=== PATIENT | male | born 1950 | race African-American/Black ===

== ENCOUNTER 2019-01-12 10:54 | Observation (INO) ==
[2019-01-12] MEDS ORDERED: ASPIRIN PO ONE (11:04)
--- NOTE | 2019-01-12 11:09 | EKG Report ---
Test Performed on : 01/12/2019 10:59:56 AM Test Reason : cp Blood Pressure : / mmHG Vent. Rate : 056 BPM Atrial Rate : 056 BPM P-R Int : 132 ms QRS Dur : 116 ms QT Int : 444 ms P-R-T Axes : 019 009 093 degrees QTc Int : 428 ms Sinus bradycardia. Left ventricular hypertrophy with QRS widening Inferior infarct , age undetermined T wave abnormality, consider lateral ischemia Abnormal ECG No previous ECGs available Unconfirmed Result
[2019-01-12 11:30] LABS: BASO# 0.04 X1000 (0.0-0.2); BASO% 0.8 % (0.0-0.8); EOS# 0.18 X1000 (0.0-0.7); EOS% 3.4 % (0.0-10.0); HEMATOCRIT 44.3 % (42.0-52.0); HEMOGLOBIN 13.8 g/dL (14.0-18.0); LYMPH# 1.54 X1000 (1.2-3.4); LYMPH% 28.9 % (20.5-51.1); MCH 24.8 PG (27-31); MCHC 31.2 g/dL (33-37); MCV 79.7 FL (81-99); MONO# 0.31 X1000 (0.11-0.59); MONO% 5.8 % (1.7-9.3); NEUT# 3.25 X1000 (1.4-6.5); NEUT% 61.1 % (42.2-75.2); PLT 190 X1000 (130-400); RBC 5.56 XMIL (4.7-6.1); RDW 16.8 % (11.5-14.5); WBC 5.32 X1000 (4.8-10.8)
--- NOTE | 2019-01-12 11:35 | Diag Imaging Result Doc PS360 ---
EXAM: CHEST-2 VIEWS HISTORY: cp TECHNIQUE: Two views COMPARISON: 01/17/2014 FINDINGS: The lungs are well expanded. The heart is mildly prominent there are sternal wires. The vessels are not distended. There are no infiltrates. No pleural effusions. IMPRESSION: Mild cardiomegaly. Electronically signed by Giuseppe Dawn 01/12/2019 11:33 AM
[2019-01-12 11:36] LABS: INR 0.92; PROTIME 13.1 Seconds (11.0-16.0)
[2019-01-12 11:37] LABS: PTT 31.8 Seconds (22.3-41.8)
[2019-01-12 11:59] LABS: AGAP 13; ALB/GLOB RATIO 1.1; ALBUMIN 4.5 g/dL (3.5-5.0); ALKALINE PHOSPHATASE 53 U/L (32-122); BUN 13 mg/dL (8-22); CALCIUM 9.6 mg/dL (8.8-10.2); CHLORIDE 102 mmol/L (98-107); COSMO 284; CREATININE 1.1 mg/dL (0.7-1.2); ESTIMATED GFR > 60; GLUCOSE 143 mg/dL (70-104); GOT 17 U/L (10-34); GPT 19 U/L (10-44); POTASSIUM 3.5 mmol/L (3.5-5.1); SODIUM 141 mmol/L (136-145); TCO2 26 mmol/L (25-35); TOTAL BILIRUBIN 0.41 mg/dL (0.20-1.00); TOTAL PROTEIN 8.6 g/dL (6.3-8.3)
[2019-01-12 12:01] LABS: CK PROFILE 250 U/L (24-204)
[2019-01-12 12:22] LABS: CK INDEX 0.9 (0.0-2.5); CK-MB 2.14 ng/mL (0.0-5.0)
[2019-01-12] MEDS ORDERED: NITROGLYCERIN TOP ONE (15:15)
[2019-01-12 15:16] LABS: HEMOGLOBIN A1C 8.2 % (4.8-6.0)
--- NOTE | 2019-01-12 16:26 | HISTORY AND PHYSICAL ---
PRIMARY CARE PHYSICIAN: Dr. Thong Galicia. CHIEF COMPLAINT: Chest pain. HISTORY OF PRESENT ILLNESS: Mr. Espinoza is a 68-year-old -[place] male with history of known coronary disease, status post CABG, hypertension, Type 2 diabetes who presents to our ER with acute onset of chest pain that began earlier this morning while in his truck on the way to go get some milk at the grocery store. He actually reports more of a left arm tingling that came at rest but did report a midsternal pain with continued radiation down to the left arm. He went into the store to get the milk and then hurried back home at which point he started to have nausea and vomiting and decided to call 911 and come to the ER. In the ER he has been noted to be bradycardic in the 50s, and his EKG does show nonspecific and diffuse ST and T abnormalities, but we do not have any previous EKGs for comparison. Initial set of troponins is negative, and he is hemodynamically stable. We will admit him for observation status. PAST MEDICAL HISTORY: 1. Known coronary artery disease, status post CABG. 2. Type 2 diabetes not requiring insulin. 3. BPH. 4. Hyperlipidemia. 5. Hypertension. PAST SURGICAL HISTORY: He has had a CABG. SOCIAL HISTORY: No tobacco, alcohol or drug use. He lives at home with his . REVIEW OF SYSTEMS: A 14-point review of systems was obtained and found to be negative with the exception of the HPI. ALLERGIES: No known drug allergies. HOME MEDICATIONS: Norvasc 2.5 mg p.o. daily; Lipitor 20 mg daily; Flomax 0.4 mg p.o. daily; glimepiride 4 mg daily. PHYSICAL EXAMINATION: VITAL SIGNS: Blood pressure 195/82; heart rate 46; respiratory rate 18; O2 sat 100% on room air; temperature 97.6. GENERAL: A slightly overweight 68-year-old -[place]ian male lying in the hospital bed in no acute distress. NEUROLOGICAL: He is oriented. Follows commands without focal deficits. HEENT: Head is atraumatic and normocephalic. His pupils are equal, round and reactive to light. Oral mucosa is moist. NECK: Trachea is midline. There is no JVD. CHEST: Clear to auscultation bilaterally. CARDIOVASCULAR: Regular rate and rhythm. S1 and S2 are noted. There is 1-2/6 murmur noted. GASTROINTESTINAL: Soft, nontender and nondistended. Bowel sounds positive. EXTREMITIES: Without edema. Pulses are 1+ bilaterally. DIAGNOSTIC DATA: Chest x-ray shows mild cardiomegaly and sternal wires, nothing acute. EKG sinus bradycardia, nonspecific ST and T abnormalities, Q waves noted in the inferior leads. WBC 5.32, hemoglobin 13.8, hematocrit 44.3, platelet count 190,000, INR 0.92, sodium 141, potassium 3.5, chloride 102, C02 26, anion gap 13, BUN 13, creatinine 1.1, glucose 143. LFTs negative. CK 250, troponin negative x 1 set. Protein 8.6. ASSESSMENT AND PLAN: 1. Chest pain: The patient does have atypical features combined with mild but concerning features for angina. He has been given aspirin. He is pain-free at this time but continues to be hypertensive. We will also give him some Nitro paste. We will consult cardiology, trend his enzymes and check an echocardiogram. 2. Hypertension: We will add some nitro paste, continue his Norvasc and up titrate as necessary. 3. Hyperproteinemia: Significance is unclear. Could be dehydration but will go ahead and check SPEP because there is a globulin gap. 4. Diabetes mellitus: Check hemoglobin A1C, add patterned sugars, hold oral antidiabetic. 5. BPH: Continue home meds. 6. DVT prophylaxis with Lovenox. Further recommendations to follow. Dictated by NANCY Sidhu for Sruthi Maciel MD cc: NANCY Sidhu MD
[2019-01-12 16:30] LABS: CK INDEX 0.9 (0.0-2.5); CK-MB 2.13 ng/mL (0.0-5.0)
[2019-01-12] MEDS: HUMULIN R SUBQ SCH ×2 (17:13→22:31)
[2019-01-12] MEDS: LOVENOX SUBQ SCH (17:43)
[2019-01-12] MEDS ORDERED: MORPHINE IV PRN (18:41)
[2019-01-12] MEDS ORDERED: NITROGLYCERIN SL PRN (18:42)
[2019-01-12] MEDS: APRESOLINE PO SCH (20:13)
[2019-01-12] MEDS: PRINIVIL PO SCH (20:13)
[2019-01-12] MEDS: APRESOLINE IV PRN (20:13)
[2019-01-12] MEDS ORDERED: COREG PO SCH (21:00)
[2019-01-12 23:18] LABS: CK INDEX 0.8 (0.0-2.5); CK-MB 1.98 ng/mL (0.0-5.0)
[2019-01-13] MEDS ORDERED: XANAX PO ONE (01:00)
[2019-01-13] MEDS: APRESOLINE PO SCH ×2 (04:22→16:21)
[2019-01-13] MEDS: APRESOLINE IV PRN (04:22)
[2019-01-13 07:14] LABS: HEMATOCRIT 43.4 % (42.0-52.0); HEMOGLOBIN 13.5 g/dL (14.0-18.0); MCHC 31.1 g/dL (33-37); MCV 80.4 FL (81-99); MPV 12.5 FL (7.4-10.4); RBC 5.4 XMIL (4.7-6.1); RDW 16.9 % (11.5-14.5); WBC 4.82 X1000 (4.8-10.8)
[2019-01-13] MEDS: HUMULIN R SUBQ SCH ×3 (07:27→16:39)
[2019-01-13 07:41] LABS: AGAP 12; BUN 12 mg/dL (8-22); CALCIUM 9.6 mg/dL (8.8-10.2); CHLORIDE 104 mmol/L (98-107); COSMO 279; CREATININE 0.9 mg/dL (0.7-1.2); ESTIMATED GFR > 60; GLUCOSE 161 mg/dL (70-104); MAGNESIUM 1.6 mg/dL (1.5-2.7); POTASSIUM 3.5 mmol/L (3.5-5.1); SODIUM 138 mmol/L (136-145); TCO2 22 mmol/L (25-35)
--- NOTE | 2019-01-13 08:07 | EKG Report ---
Test Performed on : 01/13/2019 06:29:28 AM Test Reason : bradycardia Blood Pressure : / mmHG Vent. Rate : 071 BPM Atrial Rate : 071 BPM P-R Int : 136 ms QRS Dur : 114 ms QT Int : 438 ms P-R-T Axes : 065 018 074 degrees QTc Int : 475 ms Normal sinus rhythm. Inferior infarct (cited on or before 12-JAN-2019) Abnormal ECG When compared with ECG of 12-JAN-2019 10:59, (Unconfirmed) T wave inversion no longer evident in Lateral leads QT has lengthened Confirmed by New FELDMAN, Alexandre Jacobs ([id number]) on 01/13/2019 10:23:45 AM
[2019-01-13] MEDS: PRINIVIL PO SCH (08:27)
[2019-01-13] MEDS ORDERED: NORVASC PO SCH (09:00)
[2019-01-13] MEDS ORDERED: FLOMAX PO SCH (09:00)
[2019-01-13] MEDS ORDERED: ASPIRIN PO SCH (09:00)
[2019-01-13] MEDS ORDERED: LIPITOR PO SCH (09:00)
--- NOTE | 2019-01-13 12:13 | ECHO REPORT ---
ORDER DATE: 01/12/2019 INDICATION FOR STUDY: Chest pain. FINDINGS: 1. The right atrium appears normal in size. 2. Trace tricuspid regurgitation. RV systolic pressure of 28. 3. Normal RV size and systolic function. 4. Trace pulmonic insufficiency. 5. Normal left atrial size at 3.8 cm. 6. No mitral valve prolapse. There is trace mitral regurgitation. 7. Normal LV size, end-diastolic dimension of 5.7. There is mild left ventricular hypertrophy with a posterior and interventricular septal wall thickness of 1.2 cm each. Normal LV systolic function. Estimated EF is 55%. Optison was used on this study. 8. Aortic valve opens well. No evidence of stenosis or insufficiency. 9. Aorta appears upper limits of normal at 3.8 cm at the root. 10. No pericardial effusion seen. 11. Patient's heart rate appeared to be in the mid to high 40s during the majority of this study. cc: MD John Tompkins CRNP
[2019-01-13] MEDS ORDERED: LEXISCAN ONE (13:01)
--- NOTE | 2019-01-13 15:24 | Diag Imaging Result Document ---
PROCEDURE NAME: MYOCARDIAL PERF SCAN, STR/REST - 01/13/2019 SUMMARY: The patient was administered 14.2 mCi of technetium-99m sestamibi, after which resting cardiac images were obtained. The patient was subsequently administered Lexiscan 0.4 mg intravenously, after which the heart rate went from 63 beats per minute to 90 beats per minute and the blood pressure went from 183/97 to 159/83. With Lexiscan, the patient denied chest discomfort. Following the administration of Lexiscan, the patient was administered. 41.2 mCi of technetium 99m sestamibi after which gated stress cardiac images were obtained. Baseline ECG demonstrates sinus rhythm, inferior infarct of undetermined age and voltage criteria for left ventricular hypertrophy. Nonspecific ST and T-wave abnormality demonstrated. With Lexiscan, baseline ST and T-wave abnormality did not change significantly. SPECT images were reconstructed in the short, horizontal long, and vertical long axis. Review of these images demonstrated a medium sized area of moderate to severely reduced activity in the basal to mid inferolateral region of the left ventricle on stress images which appears similar on resting images. No significant reversibility is evident. Gated images demonstrate a calculated left ventricular ejection fraction of 61% with symmetrical wall motion. CONCLUSIONS: 1. Adequate response to Lexiscan. 2. Clinically negative for chest pain. 3. Electrocardiographically baseline ST and T-wave abnormality did not change significantly following administration of Lexiscan. 4. Lexiscan sestamibi images demonstrate medium sized area of fixed, moderate to severely diminished activity in the basal to mid inferolateral region of the left ventricle. No significant reversibility is evident. Findings suggest previous infarction in basal to mid inferolateral region. There is no scintigraphic evidence of inducible myocardial ischemia. Calculated left ventricular ejection fraction 61%. cc: MD Nayana Ronquillo PA
[2019-01-13 15:55] VITALS: BP 173/77
[2019-01-13] MEDS: LOVENOX SUBQ SCH (16:40)
--- NOTE | 2019-01-13 18:16 | CARDIOLOGY CONSULTATION ---
DATE: 01/13/2019 CHIEF COMPLAINT ON PRESENTATION: Chest pain. HISTORY OF PRESENT ILLNESS: Mr. Espinoza is a 68-year-old black male with a history of coronary bypass, hypertension, and diabetes. 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 His initial symptom was a stinging tingling sensation in his left arm, and then while in a resting seated position, he had a severe pounding chest discomfort in his chest that lasted for just a second or two. There were no other associated symptoms such as diaphoresis or dyspnea. The pain did not return during the course of the day. He presented to the ER for further evaluation. PAST MEDICAL HISTORY: Significant for: 1. Coronary bypass grafting, having been performed in 2010. He was last seen by Dr. Phelps in 2011. He has a PALOMO to I believe LAD, vein graft to an OM1, and a vein graft to a posterolateral branch off the RCA. 2. Hypertension. 3. Hyperlipidemia. 4. Diabetes. 5. Previous history of tobacco use. SOCIAL HISTORY: He is . His is present in the room. He does not currently smoke. FAMILY HISTORY: Significant for hypertension. REVIEW OF SYSTEMS: A 10 system review of systems is negative except for those things mentioned in HPI. PHYSICAL EXAMINATION: Vital Signs: He is afebrile with heart rate of 81. His initial blood pressure coming in was 215/101; most recent was 142/87. General: He is in no acute distress. HEENT: Oropharynx is moist. Normal dentition. Eye examination shows pink conjunctivae and white sclerae. Neck: No obvious thyromegaly or thyroid tenderness. Cardiovascular: He sounds to be in a regular rate and rhythm. He has no obvious murmurs. He has no S3. He has no lower extremity edema. Chest: Clear bilaterally. He has no increased work of breathing. Abdomen: Soft, nontender, nondistended. He has no obvious organomegaly. Skin: Warm and dry throughout without any rashes. Neurological: He is moving all extremities well. He has no lateralizing deficits. PERTINENT DATA: He had an echocardiogram showing a preserved ejection fraction of 55%. He had an upper limit of normal aortic root at 3.8 cm and mild left ventricular hypertrophy. Heart rate was noted to be in the mid 40s to low 50s during the study. His chest x-ray shows mild cardiomegaly. He had EKGs checked. Initial was on 01/12/2019 at 10:59, showing sinus rhythm, inferior Q-waves noted. His subsequent was checked on 01/13/2019 at 6:29, again with inferior Q-waves, sinus rhythm, 71 beats per minute. His laboratory data has demonstrated a white count of 4.8, hematocrit 43, platelet count 198,000. His sodium is 138, potassium 3.5, BUN 12, creatinine 0.9. His magnesium level is 1.6. His LDL is 110 with an HDL of 44. ASSESSMENT: Mr. Espinoza is a 68-year-old gentleman who had an atypical bout of chest pain. He has a history of coronary bypass grafting. PLAN: He has a fixed inferolateral defect which is consistent with Q-waves noted in his inferior leads on his EKG. His symptoms do not sound particularly ischemic in nature, and his cardiac enzymes were negative. I would take this opportunity to advance his medications, including increasing his amlodipine to 5 mg daily. I agree with the addition of the lisinopril. I will also add in hydrochlorothiazide at 25 mg daily given his markedly increased blood pressure. I have escalated his atorvastatin to high-intensity therapy at 40 mg, and reduced his aspirin 81 mg. The patient reports that his has seen Dr. Macdonald, and he would like to follow up with him. I believe that would be reasonable and would have him follow up with him in the next month. cc: Balwinder Philip MD
[2019-01-13] MEDS ORDERED: XANAX PO SCH (21:00)
--- NOTE | 2019-01-14 08:52 | PROVIDER DOCUMENTATION ---
This chart was entered by Margaret Swanson Scribe, acting as scribe for Fran Castro MD. HPI-Chest Pain - General Chief Complaint: Chest Pain Stated Complaint: CHEST PAIN Time Seen by Provider: 01/12/19 11:10 Source: patient, family Allergies/Adverse Reactions: Patient Allergies Allergy/AdvReac Type Severity Reaction Status Date / Time No Known Allergies Allergy Verified 01/12/19 13:14 Home Medications: Home Medication List Medication Instructions Recorded Confirmed Last Taken Type Glimepiride 4 mg PO DAILY 01/12/19 01/12/19 01/12/19 09:00 History Tamsulosin [Flomax] 1 cap PO DAILY 01/12/19 01/12/19 01/12/19 09:00 History Alprazolam [Xanax] 0.5 mg PO BID 01/13/19 01/13/19 Unknown History Amlodipine [Norvasc] 5 mg PO DAILY #30 tab 01/13/19 Unknown Rx Aspirin 81 mg PO DAILY #30 tab 01/13/19 Unknown Rx Atorvastatin Calcium [Lipitor] 40 mg PO QHS #30 tab 01/13/19 Unknown Rx Hydrochlorothiazide 25 mg PO DAILY #30 tab 01/13/19 Unknown Rx LISINOpril [Prinivil] 10 mg PO BID #60 tab 01/13/19 Unknown Rx Nitroglycerin Sl [Nitroglycerin] 0.4 mg SUBLINGUAL Q5M PRN PRN #120 01/13/19 Unknown Rx tab - History of Present Illness-CP Nature of Presenting Problem: 68 yobm presents to the ed with c/o chest pain onset last night. pt sts he he struggles with anxiety. pt sts with onset of chest pain with nausea, left anterior arm pain. pt sts pain has been intermittent and sts has resolved since being placed in a room at the er. pt on exam is nontoxic in appearance Location: reports: other (left anterior) Chest Pain Radiation: reports: arms Quality of Pain: reports: burning, cramping Severity in ED: moderate Onset/Duration: last night Timing: gone now, intermittent Context/Activities at Onset: reports: light activity Modifying Factors: improves with: nothing. worse with: other (anxiety) Associated Symptoms: reports: nausea. denies: abdominal pain, back pain, dizziness, fatigue, fever/chills, headache, shortness of breath, vomiting, weakness Nitro Today/Relief: no nitro taken today Aspirin Treatment Today: 325 mg x 1, provided by ED Prior Chest Pain/Cardiac Workup: reports: other (cabg) Similar Symptoms Previously?: Yes Recently Seen Here or By Another Healthcare Provider: No Review of Systems - Adult - REVIEW OF SYSTEMS - ADULT Constitutional: denies: chills, fever Eyes: reports: no symptoms reported Ears, Nose, Mouth & Throat: reports: no symptoms reported Cardiovascular: reports: chest pain. denies: edema, palpitations, syncope Respiratory: denies: cough, shortness of breath, wheezing Gastrointestinal: reports: nausea. denies: abdominal pain, diarrhea, vomiting Genitourinary: reports: no symptoms reported Musculoskeletal: reports: see HPI, other (left arm pain) Integumentary: reports: no symptoms reported Neurological: reports: see HPI, paresthesia. denies: dizziness/vertigo, headache/migraines, slurred speech, syncope, tremors Psychiatric: reports: no symptoms reported Endocrine: reports: no symptoms reported Hematologic/Lymphatic: reports: no symptoms reported Allergic/Immunologic: reports: no symptoms reported All Other Systems: Reviewed and Negative Past History - Adult - PAST MEDICAL HISTORY-ADULT Review of Records: reports: Nursing Assessment Review Major Childhood Illnesses: reports: denies history Cardiovascular: reports: CAD, HTN Respiratory: reports: denies history Gastrointestinal: reports: denies history Genitourinary: reports: denies history Musculoskeletal: reports: denies history Neurological: reports: denies history Endocrine/Immune: reports: denies history Other Conditions: reports: denies history - PRIOR SURGERIES/PROCEDURES Surgical/Procedure History: reports: CABG - IMMUNIZATION STATUS Childhood Immunizations: See Nurse Assessment Flu Vaccine: See Nurse Assessment - SOCIAL HISTORY Smoking: denies Substance Use: denies Living Situation: family Physical Exam-General - PHYSICAL EXAM-ADULT Initial Vital Signs Reviewed: Yes - CONSTITUTIONAL General Appearance: appears well, alert, no apparent distress (sts all sx have resolved) - EYES Eyes: PERRL/EOMI, pink conjunctivae - HEAD, EARS, NOSE, MOUTH & THROAT HENMT: moist mucous membranes, normal ENT inspection - NECK Neck: non-tender, full range of motion, supple, normal inspection - RESPIRATORY Respiratory: chest non-tender, lungs clear, normal breath sounds - CARDIOVASCULAR Cardiovascular: normal peripheral pulses, regular rate, rhythm, no edema, no gallop, no JVD, no murmur - GASTROINTESTINAL (ABDOMEN) Abdominal Exam: normal bowel sounds, non tender, soft - LYMPHATIC Lymphatic: no adenopathy - MUSCULOSKELETAL Back Exam: normal inspection, no CVA tenderness, no vertebral tenderness Extremity: normal range of motion, non-tender, normal gait, normal inspection, no pedal edema, no calf tenderness, normal capillary refill, pelvis stable - SKIN Integumentary: normal color, normal turgor, warm/dry - NEUROLOGIC Neurologic: grossly normal, no motor/sensory deficits - PSYCHIATRIC Psych/Mental Status: normal mood/affect, normal thought content, normal thought process, oriented x 3 - HEART Score HEART Score: History: Moderately Suspicious HEART Score: ECG: Non-Specific Repolarization Disturbance/LBBB/PM HEART Score: Age: > or = 65 Years HEART Score: Risk Factors for Atherosclerotic Disease: > or = 3 Risk Factors or History of Atherosclerotic Disease HEART Score: Troponin: < or = Normal Limit Total HEART Score:: 6 Progress - PLAN OF CARE/RESULTS Progress/Plan/Lab Results: Orders Category Date Time Status Admit - [facility] Routine [id number] 01/12/19 14:14 Active Cardiac Monitoring DIRECTED Care 01/12/19 11:04 Completed Notify MD if DIRECTED Care 01/12/19 14:14 Active Oxygen Therapy- ED Nursing DIRECTED Care 01/12/19 11:04 Active Saline Loc NOW Care 01/12/19 11:04 Active Vital Signs Order Q 4-HR ASSESS Care 01/12/19 14:14 Active Z-Document. for Tele Applied ORDERED Care 01/12/19 14:14 Completed CHEST-2 VIEWS [RAD] Stat Exams 01/12/19 11:04 Completed CBC WITH ELECTRONIC DIFF [HEME] Stat Lab 01/12/19 11:20 Completed CK PROFILE [SP CHEM] Stat Lab 01/12/19 11:20 Completed COMPREHENSIVE METABOLIC PANEL [CHEM] Stat Lab 01/12/19 11:20 Completed PRO B-NATRIURETIC PEPTIDE Stat Lab 01/12/19 11:20 Completed PROTIME WITH INR [COAG] Stat Lab 01/12/19 11:20 Completed PTT [COAG] Stat Lab 01/12/19 11:20 Completed TROPONIN T Stat Lab 01/12/19 11:20 Completed Aspirin Med 01/13/19 09:00 Discontinued 325 mg PO DAILY Aspirin Med 01/12/19 11:04 Discontinued 325 mg PO NOW ONE CP/SOB/Palp >45 yrs of Age Stat Oth 01/12/19 11:04 Ordered Telemetry [OM.EQ] Routine Oth 01/12/19 14:14 Active EKG [EKG] Stat Ther 01/12/19 11:04 Draft Transfer/Admit Order [TRANSFER] Routine Transfer 01/12/19 13:03 Completed Result Diagrams: 01/13/19 06:40 01/13/19 06:40 - REASSESSMENT Reassessment #1 Time Reassessed: 12:38 Status: unchanged - EKG 1 Time of EKG reading by physician:: 10:59 EKG Read and Signed by:: Fran Castro EKG Interpretation (*Must complete 3 of following elements*): Abnormal Rate: 56 Rhythm: sinus bradycardia Larose: normal QRS: LVH W[place] Interval: normal ST Wave: normal Comments: inferior infarct, age undetermined/T wave abnormality, consider lateral isc - XRAY 1 XRAY: Bilateral XRAY Study: Chest Impression: See EMR Report (EXAM: CHEST-2 VIEWS HISTORY: cp TECHNIQUE: Two views COMPARISON: 01/17/2014 FINDINGS: The lungs are well expanded. The heart is mildly prominent there are sternal wires. The vessels are not distended. There are no infiltrates. No pleural effusions. IMPRESSION: Mild cardiomegaly. Electronically signed by Giuseppe Dawn 01/12/2019 11:33 AM 01/12/19 1133 Interpreting Physician: Giuseppe Dawn MD Dictated Date/Time: 01/12/19 1132 cc: Fran Castro MD; Thong Galicia) - CONSULTS/PCP/HOSPITALIST Notification #1 *Consult/PCP/Hospitalist*: hospitalist dr song Time Discussed: 12:38 Consult Disposition: Admit Departure - Departure Date of Disposition Decision: 01/12/19 Time of Disposition Decision: 14:15 DIAGNOSIS: Chest pain Qualifiers: Chest pain type: unspecified Qualified Code(s): R07.9 - Chest pain, unspecified Disposition: ADMITTED INPATIENT 09 Certified Medical Emergency: Emergent Condition: Fair - Critical Care Note This patient required my direct & personal management of CC.: No Attestation - Physician/ ZOILA Attestation Patient care was provided by Advanced Practice Provider:: No The physician spent face to face time with patient:: Yes Advanced Practice Provider documentation review:: Supervising physician onsite and consulted in the evaluation and care of this patient. The physician did have a face to face encounter with the patient. This chart was documented by the indicated scribe, (Margaret Swanson Scribe) and accurately reflects the services I performed and decisions made by me, Fran Castro MD, as attested by the provider's signature.
[2019-01-14] MEDS ORDERED: ASPIRIN PO SCH (09:00)
[2019-01-14] MEDS ORDERED: NORVASC PO SCH (09:00)
[2019-01-14] MEDS ORDERED: LIPITOR PO SCH (09:00)
[2019-01-14] MEDS ORDERED: HYDROCHLOROTHIAZIDE PO SCH (09:00)
== END 2019-01-13 17:41 | disposition home or self-care (01) ==
LOC: ED 10:54 → 4N 10:54
PROVIDERS: ATTEND Internal Medicine
CPT/HCPCS: 71020; 71046; 78452; 80048; 80053; 80061; 82550; 82553; 82607; 82746; 82948; 83036; 83721; 83735; 83880; 84155; 84165; 84443; 84484; 85025; 85027; 85610; 85730; 93005; 93010; 93017; 93306; 94761; 99285; A9270; A9500; C8929; J0360; J1650; J2785; Q9957; XXXXX